=== PATIENT | female | born 1970 | race African-American/Black ===

== ENCOUNTER 2016-08-23 07:07 | Day surgery (SDC) | payer OTHER ==
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
[2016-08-22 10:16] VITALS: BMI 43.2
[2016-08-23] MEDS ORDERED: oxyCODONE HCL 5 MG TABLET PO PRN (08:58)
[2016-08-23] MEDS ORDERED: ONDANSETRON 4 MG/2 ML VIAL IVPUSH PRN (08:58)
[2016-08-23] MEDS ORDERED: LACTATED RINGERS SOLUTION 1,000 ML IV SCH (09:00)
[2016-08-23] MEDS ORDERED: KETOROLAC TROMETHAMINE 30 MG/1 ML VIAL IVPUSH PRN (09:08)
[2016-08-23] MEDS ORDERED: ONDANSETRON 4 MG/2 ML VIAL IVPB PRN (09:08)
[2016-08-23] MEDS ORDERED: DEXTROSE 5%-0.45% SALINE 1,000 ML IV SCH (09:15)
[2016-08-23] MEDS ORDERED: MIDAZOLAM HCL 2 MG/2 ML SINGLE DOSE VIAL ONE ×2 (09:21→10:28)
[2016-08-23] MEDS ORDERED: ROCURONIUM BROMIDE 50 MG/5 ML VIAL ONE (10:38)
[2016-08-23] MEDS ORDERED: PROPOFOL 20 ML ONE (10:38)
[2016-08-23] MEDS ORDERED: ceFAZolin SODIUM 1 GM VIAL IVPB ONE (10:46)
[2016-08-23] MEDS ORDERED: ceFAZolin SODIUM 1 GM VIAL ONE (10:58)
[2016-08-23] MEDS ORDERED: BENZOIN/ALOE VERA/STORAX/TOLU 58 ML BOTTLE ONE (11:50)
[2016-08-23] MEDS ORDERED: NEOSTIGMINE METHYLSULFATE 0.5 MG/ML - 10 ML MDV ONE (12:04)
[2016-08-23] MEDS ORDERED: KETOROLAC TROMETHAMINE 30 MG/1 ML VIAL ONE (12:43)
[2016-08-23] MEDS ORDERED: KETOROLAC TROMETHAMINE 30 MG/1 ML VIAL IVPUSH ONE (12:50)
[2016-08-23 13:35] VITALS: PULSE 58
[2016-08-23 14:16] VITALS: BP 110/68; TEMP 98
--- NOTE | 2016-08-23 16:34 | OP ---
- Note: Preoperative diagnosis: left breast ADH Postoperative diagnosis: same Surgeon: Dr. Eliana Truong Calender Roll Operator: DIMAS Horvath Anesthesia: General Specimen: Left wide excision EBL: minimal Drains: none Indications for procedure: The patient is a 46-year-old -[place] female with a family history of breast cancer in her mother. She had a routine screening mammogram which showed suspicious calcifications in the left breast upper outer quadrant. Stereotactic biopsy showed atypical ductal hyperplasia and fragments of a papilloma. Excision was recommended. The procedure, risks and complications were discussed with her prior to surgery. Procedure: The patient was taken to breast imaging where she underwent localization of the calcifications in the left breast. A mammogram after the stereotactic biopsy showed migration of the clip so the clip was not localized for this procedure. She was taken to [facility] where informed consent was obtained and the left breast was identified with a marker. She was taken to the operating room and placed on the operating table in the supine position. Sequential compression devices were placed on both legs. She received antibiotics prior to surgery. The left breast was prepped and draped in the usual fashion. A timeout was performed. Examination of the breast showed a localizing wire exiting the breast at 3:00. A horizontal incision was made at 3:00. The incision was deepened using electrocautery. The tip of the needle could be felt through the breast parenchyma. Electrocautery was used to separate the tissue around the needle from the remaining breast. The dissection continued beyond the tip of the needle. Once the tissue was sufficiently mobilized,the needle was disassembled and the wire was brought into the operative field. The specimen was disconnected and labeled with silk sutures with a short stitch at the superior margin and a long stitch at the lateral margin. A specimen radiograph showed the calcifications. The specimen was then sent to pathology for permanent section. The wound was inspected for hemostasis. A small amount of bleeding was controlled with electrocautery. The incision was closed using interrupted sutures of 3-0 Vicryl for the deep tissue and the dermis. The skin was closed with a running subcuticular closure of 4-0 Monocryl. The wound was cleaned and covered with Steri-Strips. A gauze dressing and a surgical bra were then applied. The patient tolerated the procedure well. At the end of the procedure all sponge and instrument counts were correct. I was present during the entire case. She was extubated and taken to the PACU in satisfactory condition
--- NOTE | 2016-08-27 14:59 | PATH ---
Surgical Pathology Report Patient Name: RAULITO PAGE [facility]. Rec. #: [id number] /Age/Gender: 1970 (Age: 46) / F Account: [id number] Location: [facility] SURGICAL Taken: 08/23/2016 Received: 08/23/2016 Reported: 08/27/2016 Physicians: Eliana Truong M.D. Specimen(s) Received LEFT BREAST WIDE EXCISION Clinical History Atypia Final Diagnosis BREAST, LEFT, WIDE EXCISION: DUCTAL CARCINOMA IN SITU (DCIS), LOW NUCLEAR GRADE, CRIBRIFORM AND PAPILLARY TYPES WITH ASSOCIATED MICROCALCIFICATIONS. DCIS EXTENT: DCIS IS PRESENT IN 3 OF 14 EXAMINED SLIDES, VISIT GREATEST EXTENT AND ONE SLIDE OF 4.5 MM. SURGICAL RESECTION MARGINS: DCIS EXTENDS TO THE CAUTERIZED LATERAL MARGIN OF RESECTION; OTHER MARGINS ARE >2 MM AWAY FROM DCIS. CHANGES CONSISTENT WITH PRIOR BIOPSY SITE PRESENT. SURROUNDING BREAST TISSUE: INTRADUCTAL PAPILLOMA WITH USUAL DUCTAL HYPERPLASIA, FIBROCYSTIC CHANGES USUAL DUCTAL HYPERPLASIA, COLUMNAR CELL CHANGE, ADENOSIS AND STROMAL FIBROSIS WITH FOCL ASSOCIATED MICROCALCIFICATIONS. PATHOLOGIC STAGING: REFER TO CHECKLIST BELOW. RECEPTOR STATUS: REFER TO CHECKLIST BELOW. Comment: Immunohistochemical stain for E-cadherin performed and interpreted at [facility] on block #11 shows strong membranous reactivity supportive of ductal phenotype. Comments DCIS of Breast: Surgical Pathology Cancer Case Summary Based on AJCC/UICC TNM, 7th edition Procedure _x_ Excision without image-guided localization Lymph Node Sampling _x_ Not sampled Specimen Laterality _x_ Left Estimated size (extent) of DCIS (greatest dimension using gross and microscopic evaluation): Number of blocks with DCIS: 3 Number of blocks examined: 14 Greatest extent on slide: 4.5 mm Nuclear Grade _x_ Grade I (low) Necrosis _x_ Not identified Microcalcifications _x_ Present in both DCIS and non-neoplastic tissue Margins _x_ Margin positive for DCIS: lateral Lymph Nodes Total number of nodes examined (sentinel and nonsentinel): 0 Number of sentinel nodes examined: 0 Lymph Node Involvement (required only if 1 or more lymph nodes have tumor cells identified) Number of lymph nodes with macrometastases (>2 mm): 0 Number of lymph nodes with micrometastases (>0.2 mm to 2 mm and/or >200 cells): 0 Number of lymph nodes with isolated tumor cells (=0.2 mm and =200 cells): 0 Size of largest metastatic deposit: n/a Pathologic Staging (pTNM) Primary Tumor (pT) pTis (DCIS): Ductal carcinoma in situ pNX Biomarker Studies Results of ER and CA studies performed on block 11 at [facility] are as follows: ER (clone [id number] mouse monoclonal antibody by Leica): ~20-25% nuclear staining with weak intensity (Positive). CA (clone16 mouse monoclonal antibody by Leica): ~90% nuclear staining with strong to moderate intensity (Positive). Positive and negative controls (internal if applicable) show appropriate results. Formalin fixation and cold ischemic times are within current ASCO/CAP recommendations for ER, CA and Her2 testing. Electronically Signed Chi Welsh M.D. Gross Description Received fresh on an AccuGrid, labeled "left breast tissue wide excision" is a 7.0 x 6.8 x 2.5 cm. terry-yellow, irregular, portion of fibroadipose tissue with a needle localization wire present. There is a short suture marking the superior aspect and a long suture marking the lateral aspect, per the surgeon. There is no skin or nipple present. The specimen is inked as follows: superior and lateral blue; inferior green; medial yellow; anterior red; deep black. The specimen is serially sectioned from medial to lateral. Sectioning reveals a focus of hemorrhage, consistent with a previous biopsy site, surrounded by abundant focally firm fibrous tissue. The firm fibrous tissue abuts the superior, inferior, deep and lateral margins. No definitive mass is identified. Nnps sections are submitted in 14 cassettes as follows: 1-7-fibrous tissue sequentially submitted from medial to lateral (cassettes 1-3 and 6-7 display superior and inferior margins; cassettes 4-5 display inferior margin only); 8-9-fibrous tissue with deep margin; 31-44-zugoyfh tissue with lateral margin; 13-anterior soft tissue margin; 14-medial margin. Time to fixation: <1h Total formalin fixation time: ~6h 08/23/201608/23/2016
== END 2016-08-23 15:30 | disposition home or self-care (01) ==
LOC: JASU-SURG 07:07
PROVIDERS: ATTEND Surgery
PROC: 0HBU0ZX Excision of Left Breast, Open Approach, Diagnostic (ICD-10-PCS; principal; 2016-08-23 09:30)
DX: D05.92 Unspecified type of carcinoma in situ of left breast (principal); N60.92 Unspecified benign mammary dysplasia of left breast; Z80.3 Family history of malignant neoplasm of breast
CPT/HCPCS: 19281; 84703; 88307-TC; 88342-TC; 94760

== ENCOUNTER 2016-10-18 07:19 | Day surgery (SDC) | payer OTHER ==
--- NOTE | 2016-10-11 10:41 | HP ---
Admitting History and Physical - Primary Care Physician PCP: Eliana Truong - Admission Chief Complaint: left breast cancer History of Present Illness: 46 yo female s/p left breast wide excision for a DCIS, was noted to have positive lateral margins on final pathology. Patient is now presenting for left reexcsion of positive margins. 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38) Cardiovascular: Yes: [place] (at 36 yo) Pulmonary: Yes: Asthma, Sleep Apnea ...LMP: 08/22/16 Psych: Yes: Depression - Past Surgical History Past Surgical History: Yes: Bypass (gastric bypass and partial 2011/ 2015 lost 140 pounds), (x 2) - Smoking History Smoking history: Never smoked - Alcohol/Substance Use Hx Alcohol Use: Yes (occas) Home Medications - Allergies Allergies/Adverse Reactions: Allergies Allergy/AdvReac Type Severity Reaction Status Date / Time No Known Allergies Allergy Verified 08/22/16 10:25 - Home Medications Home Medications: Ambulatory Orders Albuterol Sulfate [Proair Respiclick] 90 mcg IH PRN 08/22/16 Aripiprazole [Abilify] 10 mg PO DAILY 08/22/16 Ca/D3/Mag#11/Zinc/Crop Grain Or Livestock Farmer/Jax/Bor [Caltrate 600+D Plus Tablet] 1 each PO DAILY Carvedilol 6.25 mg PO HS 08/22/16 Cetirizine HCl [Zyrtec -] 10 mg PO DAILY 08/22/16 Fluticasone Prop 0.05% Nasal [Flonase -] 1 spray NS DAILY 08/22/16 Gabapentin [Neurontin] 300 mg PO TID 08/22/16 Hctz 25Mg/Triamterene [Dyazide /37.5 -] 1 cap PO DAILY 08/22/16 Losartan Potassium [Cozaar -] 100 mg PO HS 08/22/16 Paroxetine HCl [Paxil -] 20 mg PO HS 08/22/16 Tramadol HCl [Ultram -] 50 mg PO Q6H PRN 08/22/16 Trazodone HCl 100 mg PO HS 08/22/16 Acetaminophen W/ Codeine #3 [Tylenol # 3 -] 1 tab PO Q6H PRN #20 tablet MDD 4 Family Disease History - Family Disease History Family Disease History: CA: Grandparent (breast and lung at 49), Mother (breast at 32) Review of Systems - Review of Systems Constitutional: reports: No Symptoms Physical Examination Constitutional: Yes: Well Nourished Breast(s): Yes: Left (Left breast incision clean without erythema or discharge noted.) Problem List - Problems (1) Ductal carcinoma in situ (DCIS) of left breast Code(s): D05.12 - INTRADUCTAL CARCINOMA IN SITU OF LEFT BREAST Assessment/Plan Plan Reexcision of positive margin of left breast
[2016-10-12 10:32] VITALS: BMI 43.2
[2016-10-18] MEDS ORDERED: LIDOCAINE HCL 1%, 10 MG/ML (20ML VIAL) ONE (07:30)
[2016-10-18] MEDS ORDERED: ceFAZolin SODIUM 1 GM VIAL ONE ×2 (08:25→08:55)
[2016-10-18] MEDS ORDERED: MIDAZOLAM HCL 2 MG/2 ML SINGLE DOSE VIAL ONE (08:26)
[2016-10-18] MEDS ORDERED: PROPOFOL 20 ML ONE ×2 (08:26)
[2016-10-18] MEDS ORDERED: SUCCINYLCHOLINE CHLORIDE 200 MG/10 ML VIAL ONE (08:26)
[2016-10-18] MEDS ORDERED: ROCURONIUM BROMIDE 50 MG/5 ML VIAL ONE (08:32)
[2016-10-18] MEDS ORDERED: LIDOCAINE 1%/EPI 1:100000 (50 ML MULTI DOSE VIAL) INF ONE (09:01)
[2016-10-18] MEDS ORDERED: BUPIVACAINE HCL 0.25% 125 MG/50 ML VIAL INF ONE (09:28)
[2016-10-18] MEDS ORDERED: GUM MASTIC/STORAX/MSAL/ALCOHOL 1 DRP DROPSBTL MC ONE (09:41)
[2016-10-18] MEDS ORDERED: LACTATED RINGERS SOLUTION 1,000 ML IV SCH (09:45)
[2016-10-18] MEDS ORDERED: ONDANSETRON 4 MG/2 ML VIAL IVPUSH PRN (09:47)
[2016-10-18] MEDS ORDERED: oxyCODONE HCL 5 MG TABLET PO PRN (09:48)
[2016-10-18] MEDS ORDERED: ACETAMINOPHEN WITH CODEINE 300MG/30MG TABLET ONE (10:08)
[2016-10-18 10:20] VITALS: TEMP 97.7
[2016-10-18 11:28] VITALS: BP 148/81; PULSE 70
--- NOTE | 2016-10-20 08:09 | OP ---
DATE OF OPERATION: 10/18/2016 PREOPERATIVE DIAGNOSIS: Left ductal carcinoma in situ. POSTOPERATIVE DIAGNOSIS: Left ductal carcinoma in situ. PROCEDURE: Re-excision of left breast ductal carcinoma in situ. SURGEON: Eliana Truong MD ELECTRIC LOCOMOTIVE FIRER/FIREMAN: ANESTHESIA: MAC. ANESTHESIOLOGIST: Shemar Rodriguez MD SPECIMEN: Lateral margin. INDICATION FOR PROCEDURE: The patient is a 46-year-old woman who is status post a left wide excision for atypia. Final pathology showed DCIS with a positive lateral margin. She is going to the operating room for re-excision of this margin. The procedure and risks were discussed with her prior to surgery. DESCRIPTION OF PROCEDURE: The patient was identified in Ambulatory Surgery. Informed consent was obtained. The left breast was marked to identify the surgical side. She was taken to the operating room and placed on the operating table in the supine position. Sequential compression devices were placed on both legs. She received antibiotics prior to surgery. She was sedated. The left breast was prepped and draped in the usual fashion. A timeout was performed. The skin was infiltrated with 1% lidocaine. The previous incision was opened with a scalpel. The tissue was divided until the previous biopsy cavity was encountered. A clamp was used to grasp the tissue at the lateral border of the cavity. Electrocautery was used to remove additional tissue from the lateral margin. This tissue was marked with a suture at the biopsy cavity site. It was placed in formalin and sent to Pathology. The wound was irrigated and inspected for hemostasis. Once hemostasis was satisfactory, the incision was closed. The deep tissue was closed with interrupted sutures of 3-0 Vicryl. The dermis was closed with interrupted sutures of 3-0 Vicryl. The skin was infiltrated with 0.25% Marcaine. The skin was closed with a running subcuticular closure of 4-0 Monocryl. The wound was cleaned and covered with Steri-Strips. A gauze and Tegaderm dressing was then applied. The patient tolerated the procedure well. At the end of the procedure, all sponge and instrument counts were correct. She was taken to Ambulatory in satisfactory condition. Sole [id number]
--- NOTE | 2016-10-24 13:02 | PATH ---
Surgical Pathology Report Patient Name: RAULITO PAGE [facility]. Rec. #: [id number] /Age/Gender: 1970 (Age: 46) / F Account: [id number] Location: [facility] AMBULATORY Taken: 10/18/2016 Received: 10/18/2016 Reported: 10/24/2016 Physicians: Eliana Truong M.D. Specimen(s) Received LEFT BREAST RE-EXCISION Clinical History Re-excision: DCIS Final Diagnosis BREAST, LEFT, RE- EXCISION: FOCAL ATYPICAL DUCTAL HYPERPLASIA (ADH) AND FOCAL USUAL DUCTAL HYPERPLASIA. NO RESIDUAL DUCTAL CARCINOMA IN SITU (DCIS) IS IDENTIFIED. Electronically Signed Taylor Osuna M.D. Gross Description Received in formalin labelled "left breast re-excision suture at biopsy cavity side" is a 3.5 x 2.9 x 1.2 cm portion of yellow and terry fibrofatty tissue with a suture marking one aspect. The opposite margin is inked. Sectioned and totally submitted in 4 cassettes. Time to formalin fixation: 3 minutes Total formalin fixation time: Approximately 34 for a the is an ours. [facility]/10/19/2016 [facility]/10/19/2016
== END 2016-10-18 11:30 | disposition home or self-care (01) ==
LOC: FASU 07:19
PROVIDERS: ATTEND Surgery
PROC: 0HBU0ZX Excision of Left Breast, Open Approach, Diagnostic (ICD-10-PCS; principal; 2016-10-18 09:03)
DX: D05.12 Intraductal carcinoma in situ of left breast (principal)
CPT/HCPCS: 84703; 88307-TC

== ENCOUNTER 2017-05-30 06:24 | Day surgery (SDC) | payer OTHER ==
[2017-05-21 12:32] VITALS: BMI 40.6
--- NOTE | 2017-05-27 09:41 | HP ---
Admitting History and Physical - Primary Care Physician PCP: Eliana Truong - Admission Chief Complaint: left breast sclerosing papilloma History of Present Illness: 46 yo female with h/o left breast DCIS was noted to have left breast calcifications. Stereo bx of the the area done 05/08/2017 was c/w sclerosing intraductal papilloma with calcifications. Patient is now presenting for WE of the left breast with NL. 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38) Cardiovascular: Yes: [place] (at 36 yo) Pulmonary: Yes: Asthma, Sleep Apnea ...LMP: 09/17/16 Psych: Yes: Depression - Past Surgical History Past Surgical History: Yes: Bypass (gastric bypass and partial 2015 lost 140 pounds), (x 2) Additional Past Surgical History: left breast WE 08/2016 c/w DCIS - Smoking History Smoking history: Never smoked Have you smoked in the past 12 months: No - Alcohol/Substance Use Hx Alcohol Use: Yes (OCCASS) Home Medications - Allergies Allergies/Adverse Reactions: Allergies Allergy/AdvReac Type Severity Reaction Status Date / Time No Known Drug Allergies Allergy Verified 05/21/17 12:11 - Home Medications Home Medications: Ambulatory Orders Albuterol Sulfate [Proair Respiclick] 90 mcg IH PRN 08/22/16 Aripiprazole [Abilify] 10 mg PO DAILY 08/22/16 Ayaz/D3/Mag11/Zinc/Payment Processor/Jax/Bor [Caltrate 600+D Plus Tablet] 1 each PO DAILY Carvedilol 6.25 mg PO HS 08/22/16 Cetirizine HCl [Zyrtec -] 10 mg PO DAILY PRN 08/22/16 Fluticasone Prop 0.05% Nasal [Flonase -] 1 spray NS DAILY PRN 08/22/16 Hctz 25Mg/Triamterene [Dyazide 25/37.5 -] 1 cap PO HS 08/22/16 Losartan Potassium [Cozaar -] 100 mg PO HS 08/22/16 Paroxetine HCl [Paxil -] 20 mg PO HS 08/22/16 Trazodone HCl 100 mg PO HS 08/22/16 Acetaminophen W/ Codeine #3 [Tylenol # 3 -] 1 - 2 tab PO Q4H PRN #14 tablet MDD 8 10/18/16 Ammonium Lactate Lotion [Lac-Hydrin 12] 12 l AD TID PRN 10/18/16 B12/Levomefolate Calcium/B-6 [Kihpg-Txnaarfucn-Kzwmjnrpv Tb] 1 each PO DAILY Olopatadine HCl [Pataday] 2.5 ml OP DAILY PRN 10/18/16 Family Disease History - Family Disease History Family Disease History: CA: Grandparent (breast and lung at 49), Mother (breast at 32) Other Family History: maternal great GM-lung cancer. paternal GM-lung cancer. paternal uncle-lung cancer Review of Systems - Review of Systems Constitutional: reports: No Symptoms Cardiovascular: reports: No Symptoms Respiratory: reports: No Symptoms Physical Examination Constitutional: Yes: Well Nourished, Calm Breast(s): Yes: Other (Breasts are large and pendulous. Radiation changes noted in the left breast. No suspicious masses or adenopathy noted.) Problem List - Problems (1) Intraductal papilloma of left breast Code(s): D24.2 - BENIGN NEOPLASM OF LEFT BREAST Assessment/Plan Plan: left breast WE with NL
[2017-05-30] MEDS ORDERED: LIDOCAINE HCL 1%, 10 MG/ML (20ML VIAL) ONE (10:13)
[2017-05-30] MEDS ORDERED: BUPIVACAINE HCL/PF 0.5% (5MG/ML) 10 ML VIAL ONE (10:13)
[2017-05-30] MEDS ORDERED: MIDAZOLAM HCL 2 MG/2 ML SINGLE DOSE VIAL ONE (10:29)
[2017-05-30] MEDS ORDERED: ONDANSETRON 4 MG/2 ML VIAL IVPUSH PRN ×2 (10:56→12:37)
[2017-05-30] MEDS ORDERED: KETOROLAC TROMETHAMINE 30 MG/1 ML VIAL IVPUSH ONE (10:56)
[2017-05-30] MEDS ORDERED: DEXTROSE 5%-0.45% SALINE 1,000 ML IV SCH (11:00)
[2017-05-30] MEDS ORDERED: ePHEDrine SULFATE 50 MG/1 ML AMPULE ONE (11:33)
[2017-05-30] MEDS ORDERED: ONDANSETRON 4 MG/2 ML VIAL ONE (11:34)
[2017-05-30] MEDS ORDERED: DEXAMETHASONE SOD PHOSPHATE 4 MG/1 ML VIAL ONE (11:34)
[2017-05-30] MEDS ORDERED: ceFAZolin SODIUM 1 GM VIAL ONE (11:34)
[2017-05-30] MEDS ORDERED: KETOROLAC TROMETHAMINE 30 MG/1 ML VIAL ONE ×2 (11:34→12:38)
[2017-05-30] MEDS ORDERED: oxyCODONE HCL 5 MG TABLET PO PRN (12:37)
[2017-05-30] MEDS ORDERED: LACTATED RINGERS SOLUTION 1,000 ML IV SCH (12:45)
[2017-05-30] MEDS ORDERED: oxyCODONE HCL 5 MG TABLET ONE (13:25)
[2017-05-30 13:34] VITALS: TEMP 97.4
[2017-05-30 14:52] VITALS: BP 147/88; PULSE 60
--- NOTE | 2017-05-30 17:31 | OP ---
DATE OF OPERATION: 05/30/2017 PREOPERATIVE DIAGNOSIS: Left breast papilloma. POSTOPERATIVE DIAGNOSIS: Left breast papilloma. PROCEDURE: Left breast wide excision. SURGEON: Joan Truong MD HYPNOTHERAPIST: DIMAS Rizo ANESTHESIA: MAC. ANESTHESIOLOGIST: SPECIMEN: Left wide excision. COMPLICATIONS: None. DRAINS: None. INDICATION FOR PROCEDURE: The patient is a 46-year-old woman who is status post left wide excision for DCIS in August 2016. She had a routine followup mammogram which showed calcifications near the surgical bed. Stereotactic biopsy showed a papilloma. I recommended excision. The procedure and risks were discussed with her prior to surgery. DESCRIPTION OF PROCEDURE: The patient was taken to Breast Imaging where she underwent localization of the clip in the left breast. She was then taken to ASU where informed consent was obtained, and the left breast was identified with a marker. She was taken to the operating room and placed on the operating table in the supine position. She received antibiotics prior to surgery. Sequential compression devices were placed on both legs. She was sedated. The left breast was prepped and draped in the usual fashion. A timeout was performed here. Examination of the breast showed the localizing wire and the healed previous surgical scar. The skin was infiltrated with 1% lidocaine. The scar was incised with a scalpel. The dissection then continued until the breast parenchyma was exposed. Electrocautery was used to mobilize the tissue around the wire including the tip. Once the tissue was sufficiently mobilized, the needle was disassembled, and the specimen was removed. It was labeled with a short superior stitch and a long lateral stitch. A specimen radiograph showed the clip was present. The specimen was then placed in formalin and sent to Pathology. The wound was irrigated and inspected for hemostasis. There was some bleeding which was controlled with electrocautery. The incision was then closed using interrupted sutures of 2-0 Vicryl for the deep tissue, interrupted sutures of 3-0 Vicryl for the dermis, and a running subcuticular closure of 4-0 Monocryl for the skin. The wound was cleaned and dressed with Dermabond. Once the Dermabond had dried, the wound was covered with gauze, and a surgical garment was placed. The patient tolerated the procedure well. At the end of the procedure, all sponge and instrument counts were correct. She was taken to Recovery in satisfactory condition. JOAN TRUONG M.D. MARIA [id number]
--- NOTE | 2017-06-05 13:06 | PATH ---
Surgical Pathology Report Patient Name: RAULITO PAGE [facility]. Rec. #: [id number] /Age/Gender: 1970 (Age: 46) / F Account: [id number] Location: [facility] AMBULATORY Taken: 05/30/2017 Received: 05/30/2017 Reported: 06/05/2017 Physicians: Eliana Truong M.D. Specimen(s) Received LEFT BREAST WIDE EXCISION Clinical History Intraductal papilloma Final Diagnosis Breast, left, wide excision: Sclerosed intraductal papilloma with associated calcifications a background of prior biopsy site changes. (See note) Focal atypical ductal hyperplasia (ADH) and usual ductal hyperplasia (UDH). Note: Also noted is dense hyalinizing fibrosis and cytologic atypia within benign glandular parenchyma, suggestive of therapy (radiation)-induced changes. Electronically Signed Taylor Osuna M.D. Gross Description Received in formalin, labeled "left breast wide excision," is a 4.5 x 4.0 x 2.4 cm. terry-yellow, irregular, portion of fibroadipose tissue with a needle localization wire present. There is a short suture marking the superior aspect and a long suture marking the lateral aspect, per the surgeon. There is no skin present. The specimen is inked as follows: superior and lateral blue; inferior green; medial yellow; anterior red; deep black. The specimen is serially sectioned from medial to lateral. Sectioning reveals a 0.7 x 0.6 x 0.5 cm terry-pink nodule displaying a calvert metallic biopsy clip. The nodule is 0.4 cm from the anterior margin and 0.8 cm from the superior margin. There is an additional hemorrhagic possible previous biopsy site abutting the lateral margin. This site is associated with dense, firm fibrous tissue. The specimen is entirely and sequentially submitted from medial to lateral in 14 cassettes with the medial margin in cassette 1, the lateral margin in cassette 14 and one bisected section each in cassettes 3/4, 5/6, /, 12/02, /. (Nodule with biopsy clip in cassettes 3 and 5; focus of hemorrhage in cassettes 12-14). Time to formalin fixation: 3 minutes Total formalin fixation time: Approximately 30 hours. /05/31/2017 saudi05/31/2017
== END 2017-05-30 14:55 | disposition home or self-care (01) ==
LOC: FASU 06:24
PROVIDERS: ATTEND Surgery
PROC: 0HBU0ZX Excision of Left Breast, Open Approach, Diagnostic (ICD-10-PCS; principal; 2017-05-30 11:18)
DX: D24.2 Benign neoplasm of left breast (principal); B85.3 Phthiriasis; Z86.73 Personal history of transient ischemic attack (TIA), and cerebral infarction without residual deficits; I25.2 Old myocardial infarction; J45.909 Unspecified asthma, uncomplicated; G47.30 Sleep apnea, unspecified; F32.9 Major depressive disorder, single episode, unspecified; Z98.84 Bariatric surgery status; Z80.3 Family history of malignant neoplasm of breast
CPT/HCPCS: 19281; 84703; 88307-TC; 94760